=== PATIENT | female | born 1965 | race Asian ===

== ENCOUNTER 2016-08-28 17:51 | Outpatient (CLI) | payer OTHER | END 2016-08-28 17:56 | disposition short-term general hospital (02) | LOC: AMB 17:51 | DX: I46.9 Cardiac arrest, cause unspecified (principal) | CPT/HCPCS: A0425; A0427 ==

== ENCOUNTER 2016-08-28 17:55 | Emergency (ER) | payer OTHER ==
[~2016-08-28] VITALS: Ht 172.7 cm; Wt 136.1 kg
[2016-08-28 19:28] LABS: PARTIAL THROMBOPLASTIN TIME 25.8 SECONDS (24.5-33.6); PLATELET COUNT 254 K/uL (152-353)
[2016-08-28 19:29] LABS: POTASSIUM 5.6 mmol/L (3.6-5.2); SODIUM 147 mmol/L (136-145)
== END 2016-08-28 20:31 | disposition expired ==
LOC: ED 17:55
PROVIDERS: Specialist
PROC: 5A12012 Performance of Cardiac Output, Single, Manual (ICD-10-PCS; principal; 2016-08-28)
PROC: 0BH17EZ Insertion of Endotracheal Airway into Trachea, Via Natural or Artificial Opening (ICD-10-PCS; 2016-08-28)
DX: I46.9 Cardiac arrest, cause unspecified (principal); R73.9 Hyperglycemia, unspecified
CPT/HCPCS: 31500; 36415; 36600; 80053; 82550; 82553; 82805; 83036; 84484; 85027; 85610; 85730; 92950; 96360; 99291; C1726; J0171; J3490